=== PATIENT | male | born 1955 | race Caucasian/White ===

== ENCOUNTER 2016-09-04 11:54 | Inpatient (IN) | payer OTHER ==
[2016-09-04 12:03] VITALS: BMI 27.8
[2016-09-04] MEDS ORDERED: SODIUM CHLORIDE 1,000 ML IV ONE (12:19)
[2016-09-04] MEDS ORDERED: ONDANSETRON 4 MG/2 ML VIAL IVPUSH ONE (12:27)
[2016-09-04] MEDS ORDERED: HYDROmorphone HCL CARPU-JECT 1 MG/1 ML DISP.SYRIN IVPUSH ONE ×2 (12:27→13:13)
[2016-09-04] MEDS ORDERED: ONDANSETRON 4 MG/2 ML VIAL ONE (12:30)
[2016-09-04] MEDS ORDERED: HYDROmorphone HCL CARPU-JECT 1 MG/1 ML DISP.SYRIN ONE ×2 (12:30→13:14)
--- NOTE | 2016-09-04 12:37 | PDOC ---
History of Present Illness <Aaron Cazares - Last Filed: 09/04/16 14:12> - General History Source: Patient Exam Limitations: No Limitations - History of Present Illness Initial Comments: 09/04/16 12:38 The patient is a 61-year-old man, accompanied by family, with a significant past medical history of hypertension and hypercholesterolemia who presents to the emergency department for further evaluation of flank pain. No trauma. No history of kidney stones. Patient states that last week, he experienced intermittent urinary symptoms of dysuria, urinary frequency, left flank pain for 4 days, that resolved on Friday after having a bladder movement and noting hematuria and a black stone. He state his pain resolved immediately after his bladder movement. Patient states he underwent a colonoscopy, yesterday which is reportedly negative. Patient was in his usual state of health and states that last night, he experienced severe left sided flank pain and dysuria that has been constant since onset. No hx of kidney stones. She denies fever, chills, cough, hemoptysis, diaphoresis, shortness of breath, chest pain, headache. She denies abdominal pain, nausea, vomiting, diarrhea, constipation, urinary urgency, testicular pain, penile discharge. Allergies: None Known Past Surgical History: Right sided hip replacement. Hernia. Left rotator cuff Social History: No tobacco, ETOH and recreational drug use. <Laly Bustillo - Last Filed: 09/04/16 14:30> - General Chief Complaint: Pain Stated Complaint: LT BACK PAIN (KIDNEY) Time Seen by Provider: 09/04/16 12:12 Past History - Past Medical History HTN: Yes Hypercholesterolemia: Yes - Surgical History Abdominal Surgery: Yes (HERNIA) - Psycho/Social/Smoking Cessation Hx Anxiety: No Suicidal Ideation: No Smoking History: Never smoked Hx Alcohol Use: No Drug/Substance Use Hx: No Substance Use Type: None <Aaron Cazares - Last Filed: 09/04/16 14:12> <Laly Bustillo - Last Filed: 09/04/16 14:30> - Past Medical History Allergies/Adverse Reactions: Allergies Allergy/AdvReac Type Severity Reaction Status Date / Time No Known Allergies Allergy Verified 09/04/16 12:03 Home Medications: Ambulatory Orders Atorvastatin Ca [Lipitor] 40 mg PO HS 09/04/16 Metoprolol Succinate [Toprol Xl] 50 mg PO DAILY 09/04/16 Review of Systems - Review of Systems Constitutional: No: Chills, Fever Respiratory: No: Cough, Shortness of Breath Cardiac (ROS): No: Chest Pain ABD/GI: No: Diarrhea, Vomiting : Yes: Flank Pain, Hematuria Integumentary: No: Bruising, Rash Neurological: No: Headache All Other Systems: Reviewed and Negative <Aaron Cazares - Last Filed: 09/04/16 14:12> *Physical Exam - Vital Signs Last Vital Signs Temp Pulse Resp BP Pulse Ox 97.8 F 77 20 122/67 98 09/04/16 11:59 09/04/16 11:59 09/04/16 11:59 09/04/16 11:59 09/04/16 11:59 <Aaron Cazares - Last Filed: 09/04/16 14:12> - Vital Signs Last Vital Signs Temp Pulse Resp BP Pulse Ox 97.8 F 77 20 122/67 98 09/04/16 11:59 09/04/16 11:59 09/04/16 11:59 09/04/16 11:59 09/04/16 11:59 - Physical Exam Comments: 09/04/16 12:39 GENERAL: The patient is awake, alert, and fully oriented. In mild to moderate discomfort. HEAD: Normal with no signs of trauma. EYES: Pupils equal, round and reactive to light, extraocular movements intact, sclera anicteric, conjunctiva clear with no pallor. ENT: Ears normal, nares patent, oropharynx clear without exudates. Moist mucous membranes. NECK: Normal range of motion, supple without lymphadenopathy, JVD, or masses. LUNGS: There are some coarse repository breath sounds. HEART: Regular rate and rhythm, normal S1 and S2 without murmur or rub. ABDOMEN: Soft. There is left lateral abdominal discomfort with guarding. Nondistended. BS wnl. No rebound. No palpable masses. No hepatosplenomegaly. BACK: Left CVA tenderness. EXTREMITIES: Normal range of motion, no edema. No clubbing or cyanosis. No cords,erythema, or tenderness. NEUROLOGICAL: Cranial nerves II through XII grossly intact. Normal speech. PSYCH: Normal mood, normal affect. SKIN: Warm, Dry, normal turgor, no rashes or lesions noted. <Bustillo,Laly - Last Filed: 09/04/16 14:30> ED Treatment Course - LABORATORY CBC & Chemistry Diagram: 09/04/16 12:41 09/04/16 12:34 - RADIOLOGY Radiology Studies Ordered: Category Date Time Status ABDOMEN & PELVIS CT W/O CONTR [CT] Stat CT Scan 09/04/16 12:19 Ordered <Aaron Cazares - Last Filed: 09/04/16 14:12> - LABORATORY CBC & Chemistry Diagram: 09/04/16 12:41 09/04/16 12:34 - RADIOLOGY Radiograph Interpretation: 09/04/16 14:29 EXAM: CT/ABDOMEN PELVIS CT W/O CONTR IMPRESSION. Status post colonoscopy. CT scan of the abdomen pelvis without oral and intravenous contrast Coronal and sagittal reformatted images were obtained No prior is available for comparison Visualized lung base demonstrates a 3 mm juxtapleural calcified nodule in the right lower lobe, posteriorly on axial image #2 consistent with a calcified granuloma. The heart is within normal limits in size. There are minimal atelectatic changes in the left lung base. Evaluation of the liver, spleen, pancreas, gallbladder and both adrenal glands appear unremarkable partially distended stomach without thickening of its wall. Both adrenal glands appear unremarkable. Right kidney is within normal limits in size with a 4 mm nonobstructing stone. The left kidney is slightly larger the right with moderate hydronephrosis and stranding of the perinephric fat. There is an obstructing stone in the proximal left ureter just distal to the ureteropelvic junction measuring 11 x 8 x 6 mm in craniocaudal, AP and transverse dimension. There is significant edema around the the proximal left ureter. 3 mm nonobstructing stone in the left renal lower pole and a 2.3 cm cyst in its upper pole. Partially distended urinary bladder without thickening of its wall. There is no evidence of small bowel obstruction or enlarged retroperitoneal lymph nodes. Normal-appearing terminal ileum and appendix. Normal stool burden in the colon with multiple diverticula mainly in the descending down to the mid sigmoid colon without evidence of acute diverticulitis. Vascular calcifications are present. Perirectal and pericecal fat is clear. Prostate gland is within normal limits in size. A small fat- containing right and left inguinal hernia is present. There is fluid in the distal portion of the right inguinal canal that may be extending from the pelvis that demonstrates no evidence of free fluid versus partially included hydrocele in the scrotum. Visualized osseous structures appear <Laly Bustillo - Last Filed: 09/04/16 14:30> Medical Decision Making - Medical Decision Making 09/04/16 12:35 A portion of this note was documented by scribe services under my direction. I have reviewed the details of the note, within reason, and agree with the documentation with the following case summary and management plan written by me. 61-year-old male with history of hypertension and high cholesterol presents with left flank pain intermittently since last week, also postop day 1 of colonoscopy. Patient had intermittent left flank pain for 4 days last week, then resolved, and was followed by an episode of gross hematuria with clot. Yesterday had reportedly unremarkable colonoscopy. This morning was again awoken with new onset left flank pain with urinary urgency, but no hematuria. No fever. Left CVA tenderness and left lateral abdominal tenderness 61-year-old male who likely passed a kidney stone last week, now presents with recurrence of left flank pain in the setting of a normal colonoscopy yesterday. Presentation is still most consistent with recurring renal colic, less likely colonoscopy complication or GI pathology. Labs, urinalysis Noncontrast CT of the abdomen and pelvis Pain control, nausea control IV fluid hydration Reassess and dispo accordingly 09/04/16 13:38 Creatinine 1.8, unknown baseline. White count 11, urinalysis pending. On my preliminary review of the CAT scan, there is a large obstructing proximal left ureteral stone with left hydronephrosis. Will need continued pain control, urology intervention. 09/04/16 14:12 Accepted for inpatient med/surg by Dr. Burger, endorsed to Dr. Chamorro. He will arrange for urology consult. <Aaron Cazares - Last Filed: 09/04/16 14:12> *DC/Admit/Observation/Transfer - Discharge Dispostion Admit: Yes <Aaron Cazares - Last Filed: 09/04/16 14:12> - Attestations Scribe Attestion: 09/04/16 12:39 Documentation prepared by Laly Bustillo, acting as biomedical equipment specialist for Aaron Cazares MD. <Laly Bustillo - Last Filed: 09/04/16 14:30> Diagnosis at time of Disposition: Left flank pain, Hydronephrosis with renal calculous obstruction
[2016-09-04 12:48] LABS: EOSINOPHIL 1.4 % (0-4.5); MCH 30.6 pg (25.7-33.7); MCHC 33.7 g/dl (32.0-35.9); MEAN CELL VOLUME 90.8 fl (80-96); MEAN PLT VOLUME 9.7 fl (7.5-11.1); NEUTROPHILS 77.9 % (42.8-82.8); PLATELET COUNT 208 K/MM3 (134-434); RDW 13.7 % (11.9-15.9)
[2016-09-04 13:17] LABS: ALBUMIN 3.3 g/dl (3.4-5.0); CREATININE 1.8 mg/dL (0.7-1.3)
[2016-09-04 13:18] LABS: BILIRUBIN,TOTAL 0.4 mg/dL (0.2-1.0); TOT PROT 7.3 g/dl (6.4-8.2)
[2016-09-04] MEDS ORDERED: DOCUSATE SODIUM 100 MG CAPSULE (FP) PO PRN (14:12)
--- NOTE | 2016-09-04 14:48 | HP ---
Admitting History and Physical - Primary Care Physician PCP: Ariel Chamorro - Admission Chief Complaint: DEVIN. LEUKOCYTOSIS. LARGE OBSTRUCTING RENAL STONE History Source: Patient, Family Member, Medical Record Limitations to Obtaining History: No Limitations - Smoking History Smoking history: Never smoked - Alcohol/Substance Use Hx Alcohol Use: No Home Medications - Allergies Allergies/Adverse Reactions: Allergies Allergy/AdvReac Type Severity Reaction Status Date / Time No Known Allergies Allergy Verified 09/04/16 12:03 - Home Medications Home Medications: Ambulatory Orders Atorvastatin Ca [Lipitor] 40 mg PO HS 09/04/16 Metoprolol Succinate [Toprol Xl] 50 mg PO DAILY 09/04/16 Review of Systems - Review of Systems Constitutional: denies: Chills, Fever Cardiovascular: denies: Chest Pain Respiratory: denies: SOB Gastrointestinal: reports: Other (S/P COLONOSCOPY AT [facility] 09/04 -> NORMAL). denies: Abdominal Pain Genitourinary: reports: Other (C/O ON/OFF FLANK PAIN. URINATED LARGE CLOT 09/03 THEN PAIN RESOLVED.) Musculoskeletal: reports: Back Pain Physical Examination Vital Signs: Vital Signs Temperature 97.8 F 09/04/16 11:59 Pulse Rate 77 09/04/16 11:59 Respiratory Rate 20 09/04/16 11:59 Blood Pressure 122/67 09/04/16 11:59 O2 Sat by Pulse Oximetry (%) 98 09/04/16 11:59 Constitutional: Yes: Calm Eyes: Yes: PERRL HENT: Yes: Normocephalic Neck: Yes: Supple Cardiovascular: Yes: Regular Rate and Rhythm, S1, S2 Respiratory: Yes: CTA Bilaterally Gastrointestinal: Yes: Normal Bowel Sounds, Soft Renal/: Yes: CVA Tenderness - Left Edema: No Imaging - Results Cat Scan: Report Reviewed Problem List - Problems (1) Hydronephrosis with renal calculous obstruction Code(s): N13.2 - HYDRONEPHROSIS WITH RENAL AND URETERAL CALCULOUS OBSTRUCTION (2) Left flank pain Code(s): R10.9 - UNSPECIFIED ABDOMINAL PAIN (3) Leukocytosis Code(s): D72.829 - ELEVATED WHITE BLOOD CELL COUNT, UNSPECIFIED (4) HLD (hyperlipidemia) Code(s): E78.5 - HYPERLIPIDEMIA, UNSPECIFIED (5) HTN (hypertension) Code(s): I10 - ESSENTIAL (PRIMARY) HYPERTENSION (6) Smoker Code(s): F17.200 - NICOTINE DEPENDENCE, UNSPECIFIED, UNCOMPLICATED (7) DEVIN (acute kidney injury) Code(s): N17.9 - ACUTE KIDNEY FAILURE, UNSPECIFIED (8) H/O total hip arthroplasty Code(s): Z96.649 - PRESENCE OF UNSPECIFIED ARTIFICIAL HIP JOINT Assessment/Plan The patient is a 61-year-old man, accompanied by family, with a significant past medical history of hypertension and hypercholesterolemia who presents to the emergency department for further evaluation of flank pain. No trauma. No history of kidney stones. Patient states that last week, he experienced intermittent urinary symptoms of dysuria, urinary frequency, left flank pain for 4 days, that resolved on Friday after having a bladder movement and noting hematuria and a black stone. He state his pain resolved immediately after his bladder movement. Patient states he underwent a colonoscopy, yesterday which is reportedly negative. Patient was in his usual state of health and states that last night, he experienced severe left sided flank pain and dysuria that has been constant since onset. No hx of kidney stones. She denies fever, chills, cough, hemoptysis, diaphoresis, shortness of breath, chest pain, headache. She denies abdominal pain, nausea, vomiting, diarrhea, constipation, urinary urgency, testicular pain, penile discharge. Allergies: None Known Past Surgical History: Right sided hip replacement. Hernia. Left rotator cuff Social History: No tobacco, ETOH and recreational drug use. (1) Hydronephrosis with renal calculous obstruction Code(s): N13.2 - HYDRONEPHROSIS WITH RENAL AND URETERAL CALCULOUS OBSTRUCTION CTAP APPRECIATED -> 1.1cm H/O RENAL STONES URO CONSULTED (2) Left flank pain Code(s): R10.9 - UNSPECIFIED ABDOMINAL PAIN (3) Leukocytosis Code(s): D72.829 - ELEVATED WHITE BLOOD CELL COUNT, UNSPECIFIED WBC 11 ID CONSULTED F/U CULTURES (4) HLD (hyperlipidemia) Code(s): E78.5 - HYPERLIPIDEMIA, UNSPECIFIED STATIN (5) HTN (hypertension) Code(s): I10 - ESSENTIAL (PRIMARY) HYPERTENSION BB WILL CONSULT CARDIO IF NEED OR -> WILL LIKELY NEED STENT EKG CXr (6) Smoker Code(s): F17.200 - NICOTINE DEPENDENCE, UNSPECIFIED, UNCOMPLICATED SMOKING CESSATION ED GIVEN (7) DEVIN (acute kidney injury) Code(s): N17.9 - ACUTE KIDNEY FAILURE, UNSPECIFIED Cr 1.8 S/P BOWEL PREP FOR COLONOSCOPY 09/04 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
[2016-09-04 15:36] LABS: URINE APPEARANCE CLEAR; URINE BILIRUBIN NEGATIVE (NEGATIVE); URINE BLOOD 1+ (NEGATIVE); URINE COLOR LTYELLOW; URINE GLUCOSE (UA) NEGATIVE (NEGATIVE); URINE KETONE TRACE (NEGATIVE); URINE LEUK ESTERASE NEGATIVE (NEGATIVE); URINE NITRITE NEGATIVE (NEGATIVE); URINE PROTEIN NEGATIVE (NEGATIVE); URINE UROBILINOGEN NEGATIVE E.U./dl (0.2-1.0)
[2016-09-04 15:37] LABS: URINE MUCUS RARE; URINE RBC <1 /hpf (0-3); URINE WBC 1 /hpf (3-5)
--- NOTE | 2016-09-04 15:57 | PN ---
Progress Note (short form) - Note Progress Note: ID consult dictated 61 year old man with renal colic and Left hydronephrosis due to left ureteral stone large stone, will most likely require surgical intervention suggest hydration and urology evaluation pain control f/u cultures rocephin d/w Dr Chamorro Problem List - Problems (1) Renal colic on left side Code(s): N23 - UNSPECIFIED RENAL COLIC (2) Hydronephrosis with renal calculous obstruction Code(s): N13.2 - HYDRONEPHROSIS WITH RENAL AND URETERAL CALCULOUS OBSTRUCTION
[2016-09-04] MEDS: NICOTINE 14 MG/24 HOURS TOPICAL PATCH TD SCH (16:21)
[2016-09-04] MEDS: HYDROmorphone HCL CARPU-JECT 2 MG/1 ML DISP.SYRIN IM PRN ×2 (16:46→22:16)
--- NOTE | 2016-09-04 19:05 | CONS ---
DATE OF CONSULTATION: DATE OF DICTATION: 09/04/2016 INFECTIOUS DISEASE CONSULTATION REQUESTING PHYSICIAN: Ariel Chamorro M.D. CONSULTING PHYSICIAN: Teresa Landers M.D. 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 Over the weekend, he came to stay at his daughter's house. He developed amaris hematuria and he passed a stone. After this, the hematuria resolved. He denies any fevers or chills. He then did a bowel prep for a colonoscopy yesterday which was normal. Again last night he had severe left-sided pain. He had difficulty initiating his urinary stream, and presented with complaints of pain. There is no history of any kidney stones, no fevers, chills , cough, hemoptysis. There is no shortness of breath or chest pain, no diarrhea or dysuria. He has no testicular pain. He has no known drug allergies. PAST MEDICAL HISTORY: Notable for hypertension, and hyperlipidemia. There is no prior history of renal stones. SURGICAL HISTORY: Notable for right hip replacement, hernia repair, and left rotator cuff surgery. There is no history of renal stones. There is no history of prior UTI. FAMILY HISTORY: Noncontributory. 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 There is no history of any cigarette or substance use. He has no known drug allergies. He takes atorvastatin and Toprol XL as an outpatient. REVIEW OF SYSTEMS: He denies chills or fever. He denies chest pain or shortness of breath. He denies abdominal pain. He currently has some left lower flank pain. Note, he does not recall the last time he had taken any antibiotics. PHYSICAL EXAMINATION: Vital signs: He is afebrile, temperature 97.8, pulse 65, blood pressure 151/84, respiratory rate 18, he weighs 167 pounds. HEENT: Normocephalic. Eyes are anicteric. Neck: Supple. Lungs: Clear to auscultation. Heart: Regular rate and rhythm. Abdomen: Soft, nontender. Extremities: Without edema. He has some mild left lower flank discomfort. LABORATORY: His white count is 11, hemoglobin 15.2, platelets 208, BUN and creatinine are 22 and 1.8, and he has got 1+ blood, 1 white cell, leukocytes and nitrites negative, and his urine culture is pending. CAT scan of his abdomen and pelvis reveals moderate left renal hydro with a proximal left ureteral stone. IMPRESSION: In summary, this is a 61-year-old man with renal colic and left hydronephrosis due to a left ureteral stone, Would suggest hydration and urology evaluation, pain control with followup of cultures. Will obtain cultures and start rocephin pending urology evaluation TERESA LANDERS M.D. [id number] MTDD
[2016-09-04] MEDS: amLODIPine BESYLATE 5 MG TABLET (FP) PO SCH (21:11)
[2016-09-04] MEDS: CEFTRIAXONE 50 ML IVPB SCH (21:11)
[2016-09-04] MEDS ORDERED: ATORVASTATIN CA 40 MG TABLET (FP) PO SCH (22:00)
[2016-09-04] MEDS ORDERED: ACETAMINOPHEN 325 MG TABLET (FP) PO ONE (23:45)
[2016-09-05] MEDS ORDERED: SODIUM CHLORIDE 0.45% 1,000 ML with POTASSIUM CHLORIDE 10 MEQ IVPB SCH
[2016-09-05] MEDS ORDERED: SODIUM CHLORIDE 0.45%/POT 1,000 ML IV SCH
[2016-09-05] MEDS ORDERED: ceFAZolin SODIUM 1 GM VIAL IVPB ONE
[2016-09-05] MEDS: SODIUM CHLORIDE 0.45% 1,000 ML with POTASSIUM CHLORIDE 10 MEQ IV SCH ×4 (00:09→21:11)
[2016-09-05] MEDS: HYDROmorphone HCL CARPU-JECT 2 MG/1 ML DISP.SYRIN IM PRN ×3 (03:37→13:44)
[2016-09-05 07:18] LABS: BASOPHIL 0.4 % (0-2.0); EOSINOPHIL 0.9 % (0-4.5); MCH 30.2 pg (25.7-33.7); MCHC 33.3 g/dl (32.0-35.9); MEAN CELL VOLUME 90.5 fl (80-96); MEAN PLT VOLUME 10.2 fl (7.5-11.1); NEUTROPHILS 75.4 % (42.8-82.8); PLATELET COUNT 243 K/MM3 (134-434); RDW 13.4 % (11.9-15.9); WHITE BLOOD COUNT 12.4 K/mm3 (4.0-10.0)
[2016-09-05 07:30] LABS: INR 1.42 (0.82-1.09); PROTHROMBIN TIME (PATIENT) 15.7 SEC (9.98-11.88)
[2016-09-05 07:45] LABS: ALBUMIN 3.2 g/dl (3.4-5.0); BILIRUBIN,TOTAL 0.5 mg/dL (0.2-1.0); CALCIUM 8.2 mg/dL (8.5-10.1); CREATININE 1.5 mg/dL (0.7-1.3)
[2016-09-05] MEDS: CEFTRIAXONE 50 ML IVPB SCH (09:06)
[2016-09-05] MEDS: amLODIPine BESYLATE 5 MG TABLET (FP) PO SCH (09:07)
[2016-09-05] MEDS: NICOTINE 14 MG/24 HOURS TOPICAL PATCH TD SCH (09:09)
[2016-09-05] MEDS ORDERED: ACETAMINOPHEN 325 MG TABLET (FP) PO PRN ×2 (09:58→19:14)
[2016-09-05] MEDS ORDERED: METOPROLOL SUCCINATE 50 MG TAB.SR.24H (FP) PO SCH (10:00)
--- NOTE | 2016-09-05 10:21 | PN ---
Progress Note, Physician Chief Complaint: ID Still needs pain meds for stones NO fever Ceftriaxone - Current Medication List Current Medications: Active Medications Acetaminophen (Tylenol -) 650 mg PO Q6H PRN PRN Reason: FEVER OR PAIN Amlodipine Besylate (Norvasc -) 5 mg PO DAILY [facility] Last Admin: 09/05/16 09:07 Dose: 5 mg Atorvastatin Calcium (Lipitor -) 40 mg PO HS [facility] Last Admin: 09/04/16 21:11 Dose: 40 mg Docusate Sodium (Colace -) 100 mg PO BID PRN PRN Reason: CONSTIPATION Last Admin: 09/05/16 09:07 Dose: 100 mg Hydromorphone HCl (Dilaudid Injection -) 2 mg IM Q4H PRN PRN Reason: PAIN Last Admin: 09/05/16 09:03 Dose: 2 mg Ceftriaxone Sodium (Rocephin 1gm Ivpb (Pre-Docked)) 50 mls @ 100 mls/hr IVPB DAILY [facility] Last Admin: 09/05/16 09:06 Dose: 100 mls/hr Potassium Chloride 10 meq/ (Sodium Chloride) 1,005 mls @ 75 mls/hr IV Q13H [facility] Last Admin: 09/05/16 00:09 Dose: 75 mls/hr Metoprolol Succinate (Toprol Xl -) 50 mg PO DAILY [facility] Last Admin: 09/05/16 09:07 Dose: 50 mg Nicotine (Nicoderm Patch -) 14 mg TD DAILY [facility] Last Admin: 09/05/16 09:09 Dose: 14 mg - Objective Vital Signs: Vital Signs Temperature 98.8 F 09/05/16 08:53 Pulse Rate 71 09/05/16 08:53 Respiratory Rate 20 09/05/16 08:53 Blood Pressure 152/79 09/05/16 08:53 O2 Sat by Pulse Oximetry (%) 98 09/04/16 21:00 Constitutional: Yes: Well Nourished, No Distress Neck: Yes: WNL, Supple Cardiovascular: Yes: Regular Rate and Rhythm, S1, S2 Respiratory: Yes: WNL, Regular, CTA Bilaterally Gastrointestinal: Yes: Soft, Other (Pain left flank) Edema: No Labs: CBC, BMP 09/05/16 06:00 09/05/16 06:00 INR, PTT INR 1.42 (0.82-1.09) H 09/05/16 06:00 Assessment/Plan Microbiology Laboratory Tests 09/05/16 09/05/16 06:00 06:00 WBC 12.4 H Hct 44.4 Plt Count 243 BUN 18 Creatinine 1.5 H Assessment Left ureteral stone hydronephrosis Plan Can stop antibiotic if culture no growth Kimmy ORTIZ
--- NOTE | 2016-09-05 10:55 | PN ---
Progress Note, Physician Chief Complaint: AWAKE ALERT GIVEN PAIN MEDS FEELS BETTER BUT STILL HAS DISCOMFORT - Current Medication List Current Medications: Active Medications Acetaminophen (Tylenol -) 650 mg PO Q6H PRN PRN Reason: FEVER OR PAIN Amlodipine Besylate (Norvasc -) 5 mg PO DAILY [facility] Last Admin: 09/05/16 09:07 Dose: 5 mg Atorvastatin Calcium (Lipitor -) 40 mg PO HS [facility] Last Admin: 09/04/16 21:11 Dose: 40 mg Docusate Sodium (Colace -) 100 mg PO BID PRN PRN Reason: CONSTIPATION Last Admin: 09/05/16 09:07 Dose: 100 mg Hydromorphone HCl (Dilaudid Injection -) 2 mg IM Q4H PRN PRN Reason: PAIN Last Admin: 09/05/16 09:03 Dose: 2 mg Ceftriaxone Sodium (Rocephin 1gm Ivpb (Pre-Docked)) 50 mls @ 100 mls/hr IVPB DAILY [facility] Last Admin: 09/05/16 09:06 Dose: 100 mls/hr Potassium Chloride 10 meq/ (Sodium Chloride) 1,005 mls @ 75 mls/hr IV Q13H [facility] Last Admin: 09/05/16 00:09 Dose: 75 mls/hr Metoprolol Succinate (Toprol Xl -) 50 mg PO DAILY [facility] Last Admin: 09/05/16 09:07 Dose: 50 mg Nicotine (Nicoderm Patch -) 14 mg TD DAILY [facility] Last Admin: 09/05/16 09:09 Dose: 14 mg - Objective Vital Signs: Vital Signs Temperature 98.8 F 09/05/16 08:53 Pulse Rate 71 09/05/16 08:53 Respiratory Rate 20 09/05/16 08:53 Blood Pressure 152/79 09/05/16 08:53 O2 Sat by Pulse Oximetry (%) 98 09/04/16 21:00 Constitutional: Yes: Mild Distress Eyes: Yes: WNL HENT: Yes: WNL Neck: Yes: WNL Cardiovascular: Yes: WNL Respiratory: Yes: WNL Gastrointestinal: Yes: WNL Genitourinary: Yes: Other Musculoskeletal: Yes: Back Pain Extremities: Yes: WNL Edema: No Peripheral Pulses WNL: Yes Integumentary: Yes: WNL Wound/Incision: Yes: Clean/Dry Neurological: Yes: WNL ...Motor Strength: WNL Psychiatric: Yes: WNL Labs: CBC, BMP 09/05/16 06:00 09/05/16 06:00 INR, PTT INR 1.42 (0.82-1.09) H 09/05/16 06:00 Problem List - Problems (1) DEVIN (acute kidney injury) Code(s): N17.9 - ACUTE KIDNEY FAILURE, UNSPECIFIED (2) HTN (hypertension) Code(s): I10 - ESSENTIAL (PRIMARY) HYPERTENSION (3) Hydronephrosis with renal calculous obstruction Code(s): N13.2 - HYDRONEPHROSIS WITH RENAL AND URETERAL CALCULOUS OBSTRUCTION (4) Left flank pain Code(s): R10.9 - UNSPECIFIED ABDOMINAL PAIN (5) Leukocytosis Code(s): D72.829 - ELEVATED WHITE BLOOD CELL COUNT, UNSPECIFIED (6) Renal colic on left side Code(s): N23 - UNSPECIFIED RENAL COLIC Assessment/Plan IV ABX PER ID IVF PAIN CONTROL MEDICALLY CLEARED FOR PROCEDURES DVT PROPHYLAXIS
--- NOTE | 2016-09-05 11:05 | CON.CARD ---
Consult Consult Specialty:: Cardiology Referred by:: Dr. Chamorro Reason for Consultation:: Pre-operative cardiac evaluation - History of Present Illness Chief Complaint: Left flank pain, renal stone History of Present Illness: 61 yo male with HTN, hyperlipidemia, who developed left flank pain ~ 1 week ago and passed a renal stone on Friday. However, he developed left flank pain again yesterday after having undergone a colonscopy earlier in the day and was admitted to the hospital. He was found to have 11 x 8 x 6 mm renal stone in mid left ureter with hydronephrosis on CT scan and also noted to be in mild acute renal failure. Cardiology was consulted for pre-operative cardiac evaluation for possible urologic procedure for renal stone/hydronephrosis. Patient reports having a "small heart attack 7-8 years ago" but denies any cardiac intervention at that time. He walks regularly without exertional complaints. He is able to to go up several flights of stairs without chest pain or dyspnea. - History Source History Provided By: Patient Limitations to Obtaining History: No Limitations - Past Medical History Cardio/Vascular: Yes: HTN, Hyperlipdemia Pulmonary: Yes: Other Renal/: Yes: Renal Calculi - Past Surgical History Additional Surgical History: Right hip replacement, left rotator cuff repair - Alcohol/Substance Use Hx Alcohol Use: No - Smoking History Smoking history: Current some day smoker Have you smoked in the past 12 months: Yes Aproximately how many cigarettes per day: 3 Home Medications - Allergies Allergies/Adverse Reactions: Allergies Allergy/AdvReac Type Severity Reaction Status Date / Time No Known Allergies Allergy Verified 09/04/16 12:03 - Home Medications Home Medications: Ambulatory Orders Atorvastatin Ca [Lipitor] 40 mg PO HS 09/04/16 Doxylamine Succinate [Unisom] 25 mg PO HS 09/04/16 Metoprolol Succinate [Toprol Xl] 50 mg PO DAILY 09/04/16 Naproxen Sodium [Aleve] 1 tab PO DAILY 09/04/16 Family Disease History - Family Disease History Family History: Unremarkable (No sudden cardiac or premature CAD) Other Family History: Nephew from brain anuerysm rupture at age 38 Review of Systems - Review of Systems Constitutional: reports: No Symptoms Eyes: reports: No Symptoms HENT: reports: No Symptoms Neck: reports: No Symptoms Cardiovascular: reports: No Symptoms Respiratory: reports: No Symptoms Gastrointestinal: reports: No Symptoms Genitourinary: reports: Flank Pain Musculoskeletal: reports: No Symptoms Neurological: reports: No Symptoms Endocrine: reports: No Symptoms Hematology/Lymphatic: reports: No Symptoms Psychiatric: reports: No Symptoms Vital Signs: Vital Signs Temperature 98.8 F 09/05/16 08:53 Pulse Rate 71 09/05/16 08:53 Respiratory Rate 20 09/05/16 08:53 Blood Pressure 152/79 09/05/16 08:53 O2 Sat by Pulse Oximetry (%) 98 09/04/16 21:00 Constitutional: Yes: Well Nourished, No Distress Eyes: Yes: Conjunctiva Clear, EOM Intact HENT: Yes: Atraumatic, Normocephalic Respiratory: Yes: CTA Bilaterally Gastrointestinal: Yes: Normal Bowel Sounds, Soft. No: Tenderness Cardiovascular: Yes: Regular Rate and Rhythm JVD: No Carotid Bruit: No Heart Sounds: Yes: S1, S2 Murmur: No: Systolic Murmur Edema: No Peripheral Pulses WNL: Yes Neurological: Yes: Alert, Oriented, Cran Nerves II-XII Intact Psychiatric: Yes: WNL - Other Data Labs, Other Data: CBC, BMP 09/05/16 06:00 09/05/16 06:00 INR, PTT INR 1.42 (0.82-1.09) H 09/05/16 06:00 09/05/16 ECG: Sinus rhythm, rate 68 bpm, non-specific T wave abnormalities Imaging - Results Chest X-ray: Report Reviewed (09/04/16: No acute pulmonary process), Image Reviewed Assessment/Plan 61 yo male with HTN, hyperlipidemia, and reported prior "small heart attack" 7- 8 years ago. Admitted with who developed left flank pain and found to have left ureteral stone with associated hydronephrosis. Cardiology was consulted for pre-operative cardiac evaluation for possible urologic procedure. ECG today demonstrated sinus rhythm with non-specific T wave abnormalities. RECS: Patient would benefit from outpatient cardiac follow-up given his reported cardiac history from ~ 8 years ago. However, patient may proceed with urologic procedure (if clinically indicated) with acceptable cardiac risk and without further cardiac work-up or intervention given absence of ischemic symptoms and exercise capacity > 4 METs. Continue metoprolol and statin. Will increase amlodipine to 10 mg po daily for better BP control. Will follow-up post-procedure. Please call with questions.
[2016-09-05] MEDS ORDERED: amLODIPine BESYLATE 10 MG TABLET (FP) PO SCH (11:30)
--- NOTE | 2016-09-05 12:40 | CONSULT ---
Consult Consult Specialty:: Nephrology Reason for Consultation:: DEVIN - History of Present Illness Chief Complaint: left flank pain History of Present Illness: Pt is a 61 year old male with pmhx of HTN, arthritis, and hyperlipidemia who presents to the ER with left flank pain for about 4 days. He also complained of dysuria. He was found to have a kidney stone. I was called to evaluate him for DEVIN. He denies history of CKD. He denies history of nephrolithiasis. He is awake and alert. He does take nsaids every other day for back pain. He denies shortness of breath. He denies fevers or chills. Pt is accompanied by daughter who helped with the history. - History Source History Provided By: Patient, Medical Record - Past Medical History Cardio/Vascular: Yes: HTN, Hyperlipdemia Renal/: Yes: Renal Calculi Musculoskeletal: Yes: Osteoarthritis - Past Surgical History Additional Surgical History: Right hip replacement, left rotator cuff repair - Alcohol/Substance Use Hx Alcohol Use: No - Smoking History Smoking history: Current some day smoker Have you smoked in the past 12 months: Yes Aproximately how many cigarettes per day: 3 Home Medications - Allergies Allergies/Adverse Reactions: Allergies Allergy/AdvReac Type Severity Reaction Status Date / Time No Known Allergies Allergy Verified 09/04/16 12:03 - Home Medications Home Medications: Ambulatory Orders Atorvastatin Ca [Lipitor] 40 mg PO HS 09/04/16 Doxylamine Succinate [Unisom] 25 mg PO HS 09/04/16 Metoprolol Succinate [Toprol Xl] 50 mg PO DAILY 09/04/16 Naproxen Sodium [Aleve] 1 tab PO DAILY 09/04/16 Family Disease History - Family Disease History Family History: Denies Other Family History: Nephew from brain anuerysm rupture at age 38 Review of Systems - Review of Systems Constitutional: reports: Malaise Eyes: reports: No Symptoms HENT: reports: No Symptoms Neck: reports: No Symptoms Cardiovascular: reports: No Symptoms Respiratory: reports: No Symptoms Gastrointestinal: reports: No Symptoms Genitourinary: reports: Flank Pain, Frequency Musculoskeletal: reports: No Symptoms Integumentary: reports: No Symptoms Neurological: reports: No Symptoms Endocrine: reports: No Symptoms Hematology/Lymphatic: reports: No Symptoms Psychiatric: reports: No Symptoms Physical Exam Vital Signs: Vital Signs Temperature 98.8 F 09/05/16 08:53 Pulse Rate 71 09/05/16 08:53 Respiratory Rate 20 09/05/16 08:53 Blood Pressure 152/79 09/05/16 08:53 O2 Sat by Pulse Oximetry (%) 98 09/04/16 21:00 Constitutional: Yes: Calm Eyes: Yes: Conjunctiva Clear Neck: Yes: Supple Cardiovascular: Yes: S1, S2 Respiratory: Yes: CTA Bilaterally Gastrointestinal: Yes: Soft Renal/: Yes: WNL Musculoskeletal: Yes: WNL Edema: No Neurological: Yes: Oriented Psychiatric: Yes: Oriented Labs: CBC, BMP 09/05/16 06:00 09/05/16 06:00 Laboratory Tests 09/04/16 09/04/16 09/04/16 12:34 12:41 15:19 WBC 11.0 H Hgb 15.2 INR Sodium 135 L Potassium 4.5 Chloride 100 Carbon Dioxide 25 Anion Gap 10 BUN 22 H Creatinine 1.8 H Creat Clearance w eGFR 38.30 Urine Color Ltyellow Urine Appearance Clear Urine pH 5.0 Ur Specific [place] 1.018 Urine Protein Negative Urine Glucose (UA) Negative Urine Ketones Trace H Urine Blood 1+ H Urine Nitrite Negative Urine Bilirubin Negative Urine Urobilinogen Negative Ur Leukocyte Esterase Negative Urine RBC <1 Urine WBC 1 Urine Mucus Rare 09/05/16 09/05/16 09/05/16 06:00 06:00 06:00 WBC 12.4 H Hgb 14.8 INR 1.42 H Sodium 134 L Potassium 4.3 Chloride 98 Carbon Dioxide 26 Anion Gap 10 BUN 18 Creatinine 1.5 H Creat Clearance w eGFR 47.27 Urine Color Urine Appearance Urine pH Ur Specific [place] Urine Protein Urine Glucose (UA) Urine Ketones Urine Blood Urine Nitrite Urine Bilirubin Urine Urobilinogen Ur Leukocyte Esterase Urine RBC Urine WBC Urine Mucus Imaging - Results Ultrasound: Report Reviewed (11 mm stone in left ureter wth left hydro bilateral stone 2.3 cm left upper pole cyst) Problem List - Problems (1) DEVIN (acute kidney injury) Code(s): N17.9 - ACUTE KIDNEY FAILURE, UNSPECIFIED (2) HLD (hyperlipidemia) Code(s): E78.5 - HYPERLIPIDEMIA, UNSPECIFIED (3) HTN (hypertension) Code(s): I10 - ESSENTIAL (PRIMARY) HYPERTENSION (4) Hydronephrosis with renal calculous obstruction Code(s): N13.2 - HYDRONEPHROSIS WITH RENAL AND URETERAL CALCULOUS OBSTRUCTION (5) Left flank pain Code(s): R10.9 - UNSPECIFIED ABDOMINAL PAIN (6) Smoker Code(s): F17.200 - NICOTINE DEPENDENCE, UNSPECIFIED, UNCOMPLICATED Assessment/Plan Current Medications Generic Name Dose Route Start Last Admin Trade Name Freq PRN Reason Stop Dose Admin Acetaminophen 650 mg 09/05/16 09:58 Tylenol - PO Q6H PRN FEVER OR PAIN Amlodipine Besylate 10 mg 09/05/16 11:30 Norvasc - PO DAILY DAVID Atorvastatin Calcium 40 mg 09/04/16 22:00 09/04/16 21:11 Lipitor - PO 40 mg HS DAVID Administration Docusate Sodium 100 mg 09/04/16 14:12 09/05/16 09:07 Colace - PO 100 mg BID PRN Administration CONSTIPATION Hydromorphone HCl 2 mg 09/04/16 14:12 09/05/16 09:03 Dilaudid Injection - IM 2 mg Q4H PRN Administration PAIN Ceftriaxone Sodium 50 mls @ 100 mls/hr 09/04/16 19:30 09/05/16 09:06 Rocephin 1gm Ivpb (Pre-Docked) IVPB 100 mls/hr DAILY DAVID Administration Potassium Chloride 10 meq/ 1,005 mls @ 75 mls/hr 09/05/16 00:00 09/05/16 00:09 Sodium Chloride IV 75 mls/hr Q13H DAVID Administration Metoprolol Succinate 50 mg 09/05/16 10:00 09/05/16 09:07 Toprol Xl - PO 50 mg DAILY DAVID Administration Nicotine 14 mg 09/04/16 15:00 09/05/16 09:09 Nicoderm Patch - TD 14 mg DAILY DAVID Administration Impression 1. DEVIN 2. nephrolithiasis 3. left side hydronephrosis 4. hyperlipidemia 5. HTN 6. renal cyst 7. active smoker Plan - cont fluids - cont abx - urology evaluation - renal function is improving - follow up cultures - monitor BP - outpt stone workup Dr Feldman
[2016-09-05] MEDS ORDERED: amLODIPine BESYLATE 5 MG TABLET (FP) PO ONE (13:50)
--- NOTE | 2016-09-05 15:29 | EKG ---
Test Reason : Blood Pressure : / mmHG Vent. Rate : 068 BPM Atrial Rate : 068 BPM P-R Int : 158 ms QRS Dur : 094 ms QT Int : 384 ms P-R-T Axes : 047 005 -43 degrees QTc Int : 408 ms NORMAL SINUS RHYTHM T WAVE ABNORMALITY, CONSIDER LATERAL ISCHEMIA ABNORMAL ECG NO PREVIOUS ECGS AVAILABLE Confirmed by STEPHANIE ORTIZ, JAMES ([id number]) on 09/05/2016 3:28:47 PM Referred By: LLOYD EMMANUEL Confirmed By:JAMES BROWN MD
[2016-09-05] MEDS ORDERED: HYDROmorphone HCL CARPU-JECT 2 MG/1 ML DISP.SYRIN IVPB PRN ×2 (17:29→19:14)
[2016-09-05] MEDS ORDERED: DEXAMETHASONE SOD PHOSPHATE 4 MG/1 ML VIAL ONE (18:09)
[2016-09-05] MEDS ORDERED: PROPOFOL 20 ML ONE (18:09)
[2016-09-05] MEDS ORDERED: LIDOCAINE HCL/PF 2% SDV 5ML VIAL ONE (18:09)
[2016-09-05] MEDS ORDERED: IOHEXOL 300 MG/ML INFUS..BTL IV ONE ×2 (18:36)
[2016-09-05] MEDS ORDERED: ePHEDrine SULFATE 50 MG/1 ML AMPULE ONE (18:40)
--- NOTE | 2016-09-05 18:57 | CON.GU ---
Consult Consult Specialty:: Reason for Consultation:: left hydronephrosis with ureteral stone - History of Present Illness Chief Complaint: left hydro with colic secondary to stone History of Present Illness: Patient with 3 day history of increased left flank pain with nausea and vomiting ; denies fever chills. Patient is unable to maintain fluids or a diet and is in extreme pain. - History Source History Provided By: Patient Limitations to Obtaining History: No Limitations - Past Medical History Cardio/Vascular: Yes: HTN, Hyperlipdemia Pulmonary: Yes: Other Renal/: Yes: Renal Calculi Musculoskeletal: Yes: Osteoarthritis - Past Surgical History Additional Surgical History: Right hip replacement, left rotator cuff repair - Alcohol/Substance Use Hx Alcohol Use: No - Smoking History Smoking history: Current some day smoker Have you smoked in the past 12 months: Yes Aproximately how many cigarettes per day: 3 Home Medications - Allergies Allergies/Adverse Reactions: Allergies Allergy/AdvReac Type Severity Reaction Status Date / Time No Known Allergies Allergy Verified 09/04/16 12:03 - Home Medications Home Medications: Ambulatory Orders Atorvastatin Ca [Lipitor] 40 mg PO HS 09/04/16 Doxylamine Succinate [Unisom] 25 mg PO HS 09/04/16 Metoprolol Succinate [Toprol Xl] 50 mg PO DAILY 09/04/16 Naproxen Sodium [Aleve] 1 tab PO DAILY 09/04/16 Family Disease History - Family Disease History Other Family History: Nephew from brain anuerysm rupture at age 38 Physical Exam- Vital Signs: Vital Signs Temperature 98.7 F 09/05/16 17:30 Pulse Rate 85 09/05/16 17:30 Respiratory Rate 20 09/05/16 17:30 Blood Pressure 142/93 09/05/16 17:30 O2 Sat by Pulse Oximetry (%) 98 09/04/16 21:00 Constitutional: Yes: Well Nourished, Moderate Distress Eyes: Yes: Conjunctiva Clear, EOM Intact HENT: Yes: WNL, Atraumatic, Normocephalic Neck: Yes: WNL, Supple, Trachea Midline Cardiovascular: Yes: WNL, Regular Rate and Rhythm Respiratory: Yes: WNL, Regular Gastrointestinal: Yes: Hypoactive Bowel Sounds Renal/: Yes: CVA Tenderness - Left Kidneys: Yes: Flank Pain Left Pelvis: Yes: Bladder Non Palpable Testicles: Yes: WNL Scrotum: Yes: WNL Penis: Yes: WNL Prostate Exam: Yes: Asymmetrical, Swollen Labs: CBC, BMP 09/05/16 06:00 09/05/16 06:00 Assessment/Plan impression left hydronephrosis secondary to 1.0cm left ureteral stone Plan discussed with patient x 20 minutes Patient is emergenly taken to the OR for complete left ureteral obstruction with risk of renal impairment
--- NOTE | 2016-09-05 19:01 | OP ---
Operative Note - Note: Operative Date: 09/05/16 Pre-Operative Diagnosis: left hydronephrosis with impacted left ureteral stone Operation: cystoscopy/left ureteroscopic stone manipulation/left ureteral stent placement Findings: impacted left ureteral stone with severe edema of ureter; minor extravasation due to false passage with second wire. Post-Operative Diagnosis: Same as Pre-op Surgeon: Joe Luque Anesthesia: General Drains & Tubes with Location: 02/08 left ureteral stent Operative Report Dictated: Yes
[2016-09-05] MEDS ORDERED: DOCUSATE SODIUM 100 MG CAPSULE (FP) PO PRN (19:14)
[2016-09-05] MEDS ORDERED: ATORVASTATIN CA 40 MG TABLET (FP) PO SCH (22:00)
--- NOTE | 2016-09-06 00:44 | OP ---
DATE OF OPERATION: 09/05/2016 PREOPERATIVE DIAGNOSIS: Left hydronephrosis with impacted left ureteral stone. POSTOPERATIVE DIAGNOSIS: Left hydronephrosis with impacted left ureteral stone. PROCEDURE: Cystoscopy, left retrograde pyelogram, left ureteroscopic stone manipulation and stent placement. SURGEON: Dante Denise MD ANESTHESIA: General. DESCRIPTION OF PROCEDURE: The patient was brought to the operating room, placed in the supine position on the operating room table. General anesthesia was then administered without complications. The patient was then positioned in the dorsal lithotomy position and prepped and draped in the usual sterile manner. The patient has a history of severe colic with inability to maintain fluids or food. In addition, the patient appears to have a 1+ centimeter stone causing complete obstruction of the left upper ureter. The patient is at risk for significant loss of renal function. The patient was evaluated in the morning and noted to be in extreme, which had worsened through the day. The patient was maintained on IV antibiotics and requires emergent un-obstruction of his left kidney. The patient is given all of the risks and benefits of the procedure and understands the risks and accepts them. The patient undergoes cystoscopy. A 3+ obstructive process is noted with 2+ bladder trabeculation. A wire is passed with difficulty proximally. At this point, there was inability to pass an open-ended catheter proximally. Attempts at passing a second wire were ineffective. The first wire was not utilized as it was a difficult passage and the operating surgeon did not want to risk losing this access to the kidney. Ureteroscopy was performed and under ureteroscopic guidance it was impossible to pass the stone. The severe edema of the ureteral mucosa and the second wire entered submucosally, causing a false passage. A retrograde pyelogram showed extravasation. Because of the significant obstruction, it was decided to leave the patient with a stent and allow for the edema to improve. The patient will most likely benefit from a follow up extracorporeal shock wave lithotripsy due to the size of the stone and difficulty managing multiple wires for security and maintaining access to the kidney. A stent was placed utilizing Seldinger technique into the kidney without complications. The patient tolerated the procedure very well. DISPOSITION: The patient is to the recovery room. DANTE DENISE M.D. [id number]
[2016-09-06 08:18] LABS: ALBUMIN 2.9 g/dl (3.4-5.0); ANION GAP 8 (8-16); CALCIUM 9.4 mg/dL (8.5-10.1); CO2 26 mmol/L (21-32); MCH 30.6 pg (25.7-33.7); MCHC 33.6 g/dl (32.0-35.9); MEAN CELL VOLUME 91.2 fl (80-96); MEAN PLT VOLUME 9.5 fl (7.5-11.1); PLATELET COUNT 241 K/MM3 (134-434); RDW 13.3 % (11.9-15.9); WHITE BLOOD COUNT 12.9 K/mm3 (4.0-10.0)
[2016-09-06 08:24] LABS: ALK PHOS 82 U/L (45-117); BILIRUBIN,TOTAL 0.3 mg/dL (0.2-1.0); CREATININE 1.1 mg/dL (0.7-1.3); GLUCOSE,RANDOM 105 mg/dL (74-106); SGOT/AST 19 U/L (15-37); SGPT/ALT 19 U/L (12-78); TOT PROT 6.8 g/dl (6.4-8.2)
[2016-09-06] MEDS ORDERED: MAGNESIUM HYDROX 2400MG/30ML ORAL SUSPENSION 30 ML CUP PO PRN (09:34)
[2016-09-06] MEDS ORDERED: PT OWN MED DRAWER 7, Y5N ONE (09:41)
--- NOTE | 2016-09-06 09:42 | DS ---
Physical Examination Vital Signs: Vital Signs Temperature 98.4 F 09/06/16 05:36 Pulse Rate 77 09/06/16 05:36 Respiratory Rate 20 09/06/16 05:36 Blood Pressure 142/84 09/06/16 05:36 O2 Sat by Pulse Oximetry (%) 95 09/05/16 21:08 Findings/Remarks: post cystoscopy doing well Constitutional: Yes: No Distress Eyes: Yes: WNL HENT: Yes: WNL Neck: Yes: WNL Cardiovascular: Yes: WNL Respiratory: Yes: WNL Gastrointestinal: Yes: WNL Renal/: Yes: WNL Musculoskeletal: Yes: WNL Extremities: Yes: WNL Edema: No Peripheral Pulses WNL: Yes Integumentary: Yes: WNL Wound/Incision: Yes: Clean/Dry Neurological: Yes: WNL ...Motor Strength: WNL Psychiatric: Yes: WNL Labs: CBC, BMP 09/06/16 06:25 09/06/16 06:25 Discharge Summary Reason For Visit: L FLANK PAIN,HYDRONEPHROSIS Current Active Problems DEVIN (acute kidney injury) (Acute) H/O total hip arthroplasty (Acute) HLD (hyperlipidemia) (Acute) HTN (hypertension) (Acute) Hydronephrosis with renal calculous obstruction (Acute) Left flank pain (Acute) Leukocytosis (Acute) Renal colic on left side (Acute) Smoker (Acute) Procedures: Principal: sono Other Procedures: cystoscopy with uretral stents Hospital Course: admitted for acute renal failure failure, acute nephrolithiasis, cystoscopy done , stents placed, renal function improved, f/u as outpatient Condition: Improved - Instructions Diet, Activity, Other Instructions: low salt Disposition: HOME - Home Medications Comprehensive Discharge Medication List: Ambulatory Orders Atorvastatin Ca [Lipitor] 40 mg PO HS 09/04/16 Doxylamine Succinate [Unisom] 25 mg PO HS 09/04/16 Metoprolol Succinate [Toprol Xl] 50 mg PO DAILY 09/04/16 Naproxen Sodium [Aleve] 1 tab PO DAILY 09/04/16 must see pmd and gu in next 3-4 days
[2016-09-06] MEDS ORDERED: METOPROLOL SUCCINATE 50 MG TAB.SR.24H (FP) PO SCH (10:00)
[2016-09-06] MEDS ORDERED: amLODIPine BESYLATE 10 MG TABLET (FP) PO SCH ×2 (10:00)
[2016-09-06] MEDS ORDERED: CEFTRIAXONE 50 ML IVPB SCH (10:00)
[2016-09-06] MEDS ORDERED: NICOTINE 14 MG/24 HOURS TOPICAL PATCH TD SCH (10:00)
[2016-09-06] MEDS ORDERED: LEVOFLOXACIN 500 MG TABLET (FP) PO SCH (10:45)
--- NOTE | 2016-09-06 11:20 | PN ---
Progress Note (short form) - Note Progress Note: ANESTHESIA POST-OP CHECK 61M s/p cystoscopy, left ureteroscopy and stent under general anesthesia POD # 1. No acute complaints. Denies N/V, tolerating PO, denies pain. Vital Signs Temperature 98.4 F 09/06/16 05:36 Pulse Rate 77 09/06/16 05:36 Respiratory Rate 20 09/06/16 05:36 Blood Pressure 142/84 09/06/16 05:36 O2 Sat by Pulse Oximetry (%) 95 09/05/16 21:08 Active Medications Acetaminophen (Tylenol -) 650 mg PO Q6H PRN PRN Reason: FEVER OR PAIN Amlodipine Besylate (Norvasc -) 10 mg PO DAILY [facility] Last Admin: 09/06/16 09:55 Dose: 10 mg Atorvastatin Calcium (Lipitor -) 40 mg PO HS [facility] Last Admin: 09/05/16 21:10 Dose: 40 mg Docusate Sodium (Colace -) 100 mg PO BID PRN PRN Reason: CONSTIPATION Last Admin: 09/06/16 09:55 Dose: 100 mg Levofloxacin (Levaquin -) 500 mg PO DAILY@0600 [facility] Magnesium Hydroxide (Milk Of Magnesia -) 30 ml PO Q8H PRN PRN Reason: INDIGESTION Metoprolol Succinate (Toprol Xl -) 50 mg PO DAILY [facility] Last Admin: 09/06/16 09:55 Dose: 50 mg Nicotine (Nicoderm Patch -) 14 mg TD DAILY [facility] Last Admin: 09/06/16 09:55 Dose: 14 mg Gen: Awake, alert No apparent anesthesia complications. Pain well controlled. Continue management as per primary team.
[2016-09-06 16:05] VITALS: BP 152/82; PULSE 84; TEMP 98.2
== END 2016-09-06 11:48 | disposition home or self-care (01) | DRG 669 ==
LOC: JER 11:54 → JERBED 14:17 → J7W 15:31
PROVIDERS: ADMIT Family Medicine; ATTEND Family Medicine
PROC: 0TC78ZZ Extirpation of Matter from Left Ureter, Via Natural or Artificial Opening Endoscopic (ICD-10-PCS; principal; 2016-09-05 17:30)
PROC: 0T778DZ Dilation of Left Ureter with Intraluminal Device, Via Natural or Artificial Opening Endoscopic (ICD-10-PCS; 2016-09-05 17:30)
PROC: BT1FYZZ Fluoroscopy of Left Kidney, Ureter and Bladder using Other Contrast (ICD-10-PCS; 2016-09-05 17:30)
DX: N13.2 Hydronephrosis with renal and ureteral calculous obstruction (principal); N17.9 Acute kidney failure, unspecified; D72.829 Elevated white blood cell count, unspecified; E78.5 Hyperlipidemia, unspecified; I10 Essential (primary) hypertension; F17.210 Nicotine dependence, cigarettes, uncomplicated; N28.1 Cyst of kidney, acquired
CPT/HCPCS: 36415; 71010-TC; 74176-TC; 76000-TC; 80048; 80053; 81003; 81015; 83690; 85025; 85027; 85610; 87040; 87086; 93005; 93010; 94760; 99283-25